=== PATIENT | male | born 1965 | race Caucasian/White ===

== ENCOUNTER 2019-09-16 10:48 | Emergency (ER) | payer OTHER ==
[~2019-09-16] VITALS: Ht 167.6 cm; Wt 82.7 kg
[2019-09-16 11:02] VITALS: BP 154/89
--- NOTE | 2019-09-16 11:10 | NUR ---
53 Y/O MALE C/O LT FOOT PAIN S/P SLIPPING OFF STOOL AND FALLING YESTERDAY. DENIES HITTING HEAD. SLIGHT BRUISING TO DORSAL ASPECT OF LT FOOT. MINOR SWELLING NOTED TO LATERAL ASPECT OF FOOT. PT ABLE TO AMBULATE, INCREASE IN PAIN UPON AMBULATION. +CMS, + PULSES TO BILATERAL LEGS/FOOT. HAS NOT TAKEN MEDICATION FOR PAIN, 8/10 ACHING/THROBBING. X 1 SIDE RAIL RAISED, BED LOCKED AND IN LOW POSITION. MEDHX: DENIES ALLERIGES: ANGELICA
--- NOTE | 2019-09-16 11:11 | NUR ---
RADIOLOGY AT BEDSIDE
[2019-09-16] MEDS ORDERED: IBUPROFEN 400 MG TAB PO ONE (11:45)
--- NOTE | 2019-09-16 12:10 | NUR ---
PAIN DECREASED AFTER MEDICATION 11/14
--- NOTE | 2019-09-16 12:26 | NUR ---
PLACED SILVANO WRAP ON LEFT FOOT OF PT
[2019-09-16 12:32] VITALS: BP 154/89
--- NOTE | 2019-09-16 12:32 | NUR ---
+CMS AND PULSES AFTER APPLICATION OF SILVANO WRAP TO LT FOOT
== END 2019-09-16 12:32 | disposition home or self-care (01) ==
LOC: MED 10:48
DX: S93.602A Unspecified sprain of left foot, initial encounter (principal); R03.0 Elevated blood-pressure reading, without diagnosis of hypertension; F17.200 Nicotine dependence, unspecified, uncomplicated; W08.XXXA Fall from other furniture, initial encounter; Y93.89 Activity, other specified; Y92.89 Other specified places as the place of occurrence of the external cause; Y99.8 Other external cause status
CPT/HCPCS: 73630; 99283; Q0092; 99284